=== PATIENT | male | born 1995 | race Caucasian/White ===

== ENCOUNTER 2023-05-07 16:30 | Inpatient (IN) ==
--- NOTE | 2023-05-07 17:43 | DR.GENAD ---
HPI Time Seen Time Seen by Provider: 05/07/23 17:42 COVID-19 Coronavirus risk:travel/contact w/high risk person: No Has patient experienced Coronavirus symptoms: No Nurses notes reviewed Nurses Notes Review: Yes Source History Provided: Patient ROS Review of Systems Constitutional: No Symptoms Reported Eyes: No Symptoms Reported ENTM: No Symptoms Reported Respiratoy: No Symptoms Reported Cardiovascular: No Symptoms Reported Gastrointestinal/Abdominal: No Symptoms Reported Genitourinary: No Symptoms Reported Neurological: No Symptoms Reported Musculoskeletal: No Symptoms Reported Integumentary: No Symptoms Reported Hematologic/Lymphatic: No Symptoms Reported Endocrine: No Symptoms Reported Psychiatric: No Symptoms Reported All Other Systems: Reviewed and Negative PE Vital Signs Vitals: Vital Signs Temperature 97.4 F Pulse Rate 108 Pulse Rate 113 Pulse Rate 114 Pulse Rate 113 Pulse Rate 109 Pulse Rate 105 Pulse Rate 108 Pulse Rate 109 Pulse Rate 109 Pulse Rate 114 Pulse Rate 116 Pulse Rate 118 Pulse Rate 130 Pulse Rate 119 Pulse Rate 122 Respiratory Rate 20 Respiratory Rate 20 Respiratory Rate 16 Respiratory Rate 20 Respiratory Rate 19 Respiratory Rate 13 Respiratory Rate 30 Respiratory Rate 30 Respiratory Rate 26 Respiratory Rate 20 Respiratory Rate 20 Respiratory Rate 25 Respiratory Rate 20 Respiratory Rate 26 Respiratory Rate 20 Respiratory Rate 22 Respiratory Rate 27 Respiratory Rate 20 Blood Pressure 99/56 Blood Pressure 86/48 Blood Pressure 99/57 Blood Pressure 87/53 Blood Pressure 80/50 Blood Pressure 85/54 Blood Pressure 90/50 Blood Pressure 87/54 Blood Pressure 85/52 Blood Pressure 106/55 Blood Pressure 90/55 Blood Pressure 93/57 Blood Pressure 99/57 Blood Pressure 96/59 Blood Pressure 102/59 Blood Pressure 96/64 O2 Sat by Pulse Oximetry 100 O2 Sat by Pulse Oximetry 100 O2 Sat by Pulse Oximetry 100 O2 Sat by Pulse Oximetry 100 O2 Sat by Pulse Oximetry 100 O2 Sat by Pulse Oximetry 100 O2 Sat by Pulse Oximetry 100 O2 Sat by Pulse Oximetry 100 O2 Sat by Pulse Oximetry 100 O2 Sat by Pulse Oximetry 100 O2 Sat by Pulse Oximetry 100 O2 Sat by Pulse Oximetry 100 O2 Sat by Pulse Oximetry 100 O2 Sat by Pulse Oximetry 100 O2 Sat by Pulse Oximetry 100 O2 Sat by Pulse Oximetry 100 General Limitations: No Limitations General Appearance: Alert and In No Apparent Distress Head Head Exam: Normal Inspection Eyes Eye exam: Normal Appearance ENT ENT Exam: Normal Exam Neck Neck Exam: Normal Inspection Chest Chest Inspection: Normal Inspection and Symmetric Chest Wall Rise Respiratory Respiratory Exam: Normal Lung Sounds Bilat; negative Accessory Muscle Use, Chest Wall Tenderness or Respiratory Distress Respiratory Exam: Bilateral: Clear to Auscultation Cardiovascular Cardiovascular Exam: Regular Rate, Normal Rhythm and Normal Heart Sounds; negative Systolic Murmur or Diastolic Murmur Abdominal Exam Abdominal Exam: Normal Inspection, Normal Bowel Sounds and Soft; negative Tenderness Extremities Extremities Exam: Normal Inspection Back Back Exam: Normal Inspection Neurologic Neurological Exam: Alert and Oriented X3 Psychiatric Psychiatric Exam: Normal Affect and Normal Mood Skin Skin Exam: Intact MDM Differential Diagnosis Differential Diagnosis: BACTEREMIA, LEUKOCYTOSIS, ENDOCARDITID, LACTIC ACIDEMIA. COURSE Treatment Treatment: SEE ORDERS DONE WHILE PATIENT WAS IN ER. NS 1V BOLUS TIMES 2. BP IMPROVING. ZOSYN 3.375G IVPD AND VANCOMYCIN 1GM IVPB WHILE IN ER. ADMITTED TO ICU FOR FURTHER MANAGEMENT. Consultation Consultation Comments: DISCUSSED PATIENT WITH DR. PARKER. HE WILL ADMIT PATIENT. Education/Counseling Education/Counseling: Patient and Family Educated On: Treatment and Diagnosis ROR Labs Reviewed Laboratory Results Reviewed?: Yes Result Diagrams: 05/11/23 04:16 05/11/23 04:16 Laboratory: 05/07/23 19:42 Blood Blood Culture - Preliminary 05/07/23 19:35 Blood Blood Culture - Preliminary WBC 27.3 X10^3/uL (3.6-10.0) H 05/07/23 17: RBC 5.20 X10^6/uL (4.7-6.0) 05/07/23 17:01 Hgb 15.5 g/dL (13.5-18.0) 05/07/23 17: Hct 45.8 % (42.0-54.0) 05/07/23 17: MCV 88.1 fL (80.0-100.0) 05/07/23 17: MCH 29.8 pg (27.0-34.0) 05/07/23 17: MCHC 33.9 g/dL (33.0-35.0) 05/07/23 17: RDW 14.1 % (11.6-16.5) 05/07/23 17: Plt Count 274 X10^3/uL (150.0-450.0) 05/07/23 17: Plt Count Comment Adequate (ADEQUATE) 05/07/23 17: MPV 8.2 fL (7.4-11.0) 05/07/23 17:01 Neut % (Auto) 95.8 % (42.0-75.0) H 05/07/23 17:01 Lymph % (Auto) 0.9 % (21.0-51.0) L 05/07/23 17:01 [place] % (Auto) 2.8 % (0.0-13.0) 05/07/23 17:01 Eos % (Auto) 0.1 % (0.9-2.9) L 05/07/23 17:01 Baso % (Auto) 0.4 % (0.2-1.0) 05/07/23 17:01 Neut # (Auto) 26.2 x10^3/uL (2.2-4.8) H 05/07/23 17:01 Lymph # (Auto) 0.3 X10^3/uL (1.3-2.9) L 05/07/23 17:01 [place] # (Auto) 0.8 x10^3/uL (0.3-0.8) 05/07/23 17:01 Eos # (Auto) 0.0 x10^3/uL (0.0-0.2) 05/07/23 17:01 Baso # (Auto) 0.1 X10^3/uL (0.0-0.1) 05/07/23 17:01 Absolute Nucleated RBC 0.0 /100WBC 05/07/23 17:01 Total Counted 100 05/07/23 17: Neutrophils % (Manual) 81 % (39-76) H 05/07/23 17:01 Band Neutrophils % 6 % (0-10) 05/07/23 17:01 Lymphocytes % (Manual) 9 % (13-43) L 05/07/23 17:01 Monocytes % (Manual) 4 % (4-9) 05/07/23 17:01 Plt Morphology Comment Normal (NORMAL) 05/07/23 17: RBC Morphology Normal (NORMAL) 05/07/23 17: Sodium 136 mmol/L (136-145) 05/07/23 17: Corrected Sodium TNP 05/07/23 17: Potassium 4.8 mmol/L (3.5-5.1) 05/07/23 17:01 Chloride 99 mmol/L (98-107) 05/07/23 17:01 Carbon Dioxide 29.2 mmol/L (21-32) 05/07/23 17:01 BUN 15 mg/dL (7-18) 05/07/23 17:01 Creatinine 1.22 mg/dL (0.70-1.30) 05/07/23 17:01 Est GFR (MDRD) Af Amer > 60 (>60) 05/07/23 17:01 Est GFR (MDRD) Non-Af > 60 (>60) 05/07/23 17:01 Glucose 92 mg/dL (65-99) 05/07/23 17:01 Lactic Acid 3.4 mmol/L (0.4-2.0) H 05/07/23 22:31 Calcium 8.4 mg/dL (8.5-10.1) L 05/07/23 17: Corrected Calcium TNP 05/07/23 17: Total Bilirubin 0.80 mg/dL (0.2-1.0) 05/07/23 17:01 AST 204 Units/L (15-37) H 05/07/23 17:01 ALT 276 Units/L (12-78) H 05/07/23 17:01 Alkaline Phosphatase 88 Units/L (46-116) 05/07/23 17:01 Creatine Kinase 81 Units/L (39-308) 05/07/23 17:01 Troponin I High Sens 3.5 ng/L (4.0-60.0) L 05/07/23 17:01 B-Natriuretic Peptide 19.3 pg/mL (0-79) 05/07/23 17:01 Total Protein 6.5 g/dL (6.4-8.2) 05/07/23 17:01 Albumin 3.8 g/dL (3.4-5.0) 05/07/23 17:01 Globulin 2.7 g/dL (2.5-4.5) 05/07/23 17:01 Albumin/Globulin Ratio 1.4 Ratio (1.1-2.1) 05/07/23 17:01 Specimen Type Clean catch urine 05/07/23 19:24 Urine Color Yellow (YELLOW) 05/07/23 19:24 Urine Appearance Clear (CLEAR) 05/07/23 19:24 Urine pH 6.0 (5.0 - 8.0) 05/07/23 19:24 Ur Specific [place] 1.010 (1.000-1.030) 05/07/23 19:24 Urine Protein 1+ (NEGATIVE) 05/07/23 19:24 Urine Glucose (UA) Negative (NEGATIVE) 05/07/23 19:24 Urine Ketones Negative (NEGATIVE) 05/07/23 19:24 Urine Blood Negative (NEGATIVE) 05/07/23 19:24 Urine Nitrite Negative (NEGATIVE) 05/07/23 19:24 Urine Bilirubin Negative (NEGATIVE) 05/07/23 19:24 Urine Urobilinogen Normal (NORMAL) 05/07/23 19:24 Ur Leukocyte Esterase Negative (NEGATIVE) 05/07/23 19:24 Urine RBC None seen /HPF (0-3) 05/07/23 19:24 Urine WBC None seen /HPF (0-5) 05/07/23 19:24 Ur Squamous Epith Cells Rare /HPF (NEGATIVE) 05/07/23 19:24 Urine Bacteria Negative /HPF (NEGATIVE) 05/07/23 19:24 Ur Culture Indicated? No/not indicated 05/07/23 19:24 XRAY XRAY Interpreted by: Radiologist (REPORT NOTED.) and Self Opioid Opioid Risk Tool Total: 0 Total Score Risk Category: Low Risk Copyright: Jaxon VENTURA predicting aberrant behaviors Discharge Plan Diagnosis Discharge Problem: Bacteremia, Endocarditis, Lactic acidemia, Leukocytosis Discharge Plan Patient Disposition: 09 ADMITTED INPATIENT Condition: Stable Discharge Comment: RETURN TO ER IF WORSE.
[2023-05-07 17:44] LABS: BASOPHILS # (AUTO) 0.1 X10^3/uL (0.0-0.1); BASOPHILS % (AUTO) 0.4 % (0.2-1.0); EOSINOPHILS % (AUTO) 0.1 % (0.9-2.9); HEMATOCRIT 45.8 % (42.0-54.0); HEMOGLOBIN 15.5 g/dL (13.5-18.0); LYMPHOCYTES # (AUTO) 0.3 X10^3/uL (1.3-2.9); LYMPHOCYTES % (AUTO) 0.9 % (21.0-51.0); MEAN CORPUSCULAR HEMOGLOBIN 29.8 pg (27.0-34.0); MEAN CORPUSCULAR HGB CONC 33.9 g/dL (33.0-35.0); MEAN CORPUSCULAR VOLUME 88.1 fL (80.0-100.0); MEAN PLATELET VOLUME 8.2 fL (7.4-11.0); MONOCYTES # (AUTO) 0.8 x10^3/uL (0.3-0.8); MONOCYTES % (AUTO) 2.8 % (0.0-13.0); NEUTROPHILS # (AUTO) 26.2 x10^3/uL (2.2-4.8); NEUTROPHILS % (AUTO) 95.8 % (42.0-75.0); PLATELET COUNT 274 X10^3/uL (150.0-450.0); RED CELL DISTRIBUTION WIDTH 14.1 % (11.6-16.5); WHITE BLOOD COUNT 27.3 X10^3/uL (3.6-10.0)
[2023-05-07 17:52] LABS: ALANINE AMINOTRANSFERASE 276 Units/L (12-78); ALBUMIN 3.8 g/dL (3.4-5.0); ALKALINE PHOSPHATASE 88 Units/L (46-116); ASPARTATE AMINO TRANSFERASE 204 Units/L (15-37); BLOOD UREA NITROGEN 15 mg/dL (7-18); CALCIUM 8.4 mg/dL (8.5-10.1); CARBON DIOXIDE 29.2 mmol/L (21-32); CHLORIDE 99 mmol/L (98-107); CREATININE 1.22 mg/dL (0.70-1.30); GLUCOSE 92 mg/dL (65-99); POTASSIUM 4.8 mmol/L (3.5-5.1); SODIUM 136 mmol/L (136-145); TOTAL PROTEIN 6.5 g/dL (6.4-8.2); eGFR NON BLACK RACES > 60 (>60)
--- NOTE | 2023-05-07 17:53 | EKG ---
Test Reason : tachycardia Blood Pressure : */* mmHG Vent. Rate : 121 BPM Atrial Rate : 121 BPM P-R Int : 148 ms QRS Dur : 86 ms QT Int : 286 ms P-R-T Axes : 69 256 58 degrees QTc Int : 406 ms Sinus tachycardia Right superior axis deviation Abnormal ECG Confirmed by Alfred Donovan ([id number]) on 05/08/2023 8:06:35 AM Referred By: Confirmed By: Alfred Donovan
[2023-05-07 18:00] LABS: BAND NEUTROPHILS % 6 % (0-10); PLATELET MORPHOLOGY COMMENT NORMAL (NORMAL)
[2023-05-07] MEDS ORDERED: ZOFRAN INJ 4 MG VIAL IVP ONE (18:03)
[2023-05-07] MEDS ORDERED: TORADOL 30 MG VIAL IVP ONE (18:04)
[2023-05-07] MEDS ORDERED: TORADOL 30 MG VIAL ONE (18:06)
[2023-05-07] MEDS ORDERED: ZOFRAN INJ 4 MG VIAL ONE (18:06)
[2023-05-07] MEDS ORDERED: NS 1,000 ML IV 1,000 ML ONE ×3 (19:47→23:06)
[2023-05-07 19:48] LABS: APPEARANCE,URINE CLEAR (CLEAR); COLOR,URINE YELLOW (YELLOW); GLUCOSE, URINE NEGATIVE (NEGATIVE); KETONES,URINE NEGATIVE (NEGATIVE); PROTEIN,URINE 1+ (NEGATIVE)
[2023-05-07 19:49] LABS: BILIRUBIN,URINE NEGATIVE (NEGATIVE); BLOOD/HEMOGLOBIN,URINE NEGATIVE (NEGATIVE); LEUKOCYTE ESTERASE ,URINE NEGATIVE (NEGATIVE); NITRITES,URINE NEGATIVE (NEGATIVE); UROBILINOGEN,URINE NORMAL (NORMAL)
[2023-05-07 19:50] LABS: BACTERIA,URINE NEGATIVE /HPF (NEGATIVE); RBC,URINE NONE SEEN /HPF (0-3); SQUAMOUS EPITHELIAL CELL,UR RARE /HPF (NEGATIVE)
[2023-05-07] MEDS: NS 1,000 ML IV 1,000 ML IV ONE (19:52)
[2023-05-07] MEDS ORDERED: NS 1,000 ML IV 1,000 ML IV SCH (20:00)
[2023-05-07] MEDS ORDERED: ZOSYN VIAL 3.375 GRAMS IV ONE (21:19)
[2023-05-07] MEDS: ZOSYN VIAL 3.375 GRAMS 3.375 G in NS 100 ML IV 100 ML IV SCH (21:30)
[2023-05-07] MEDS ORDERED: NS 1,000 ML IV 1,000 ML IV ONE (21:36)
[2023-05-07] MEDS ORDERED: VANCOMYCIN IV *PREMIX 1 G/200 ML BAG 1 G/200 ML PIGGYBACK IV ONE ×2 (23:07→23:08)
[2023-05-07 23:38] LABS: ABG BASE EXCESS 0.1 mmol/L (-2.0-2.0); ABG HCO3 24.7 mmol/L (22-26)
[2023-05-08 00:45] VITALS: BMI 19.6
[2023-05-08] MEDS: NS 1,000 ML IV 1,000 ML IV SCH ×4 (01:28→21:07)
[2023-05-08] MEDS: SOLU-Cortef INJ IVP SCH ×4 (01:28→17:46)
--- NOTE | 2023-05-08 02:11 | RAD ---
HISTORYTACHYCARDIASTUDYCHEST, 1 VIEWCOMPARISONNone.TECHNIQUEA single frontal view of the chest was obtained.FINDINGSThere are multiple EKG leads and wires seen overlying the patient. The heart is normal in size. There is no focal infiltrate. There is no effusion. There is no pneumothorax. The osseous structures are intact.IMPRESSIONNo focal infiltrate or effusion.Electronically signed by: Melanie Neil (May 08, 2023 02:10:28)
[2023-05-08 05:20] LABS: INR 1.18 (0.8-1.3)
[2023-05-08] MEDS: ZOSYN VIAL 3.375 GRAMS 3.375 G in NS 100 ML IV 100 ML IV SCH ×3 (05:21→21:07)
[2023-05-08 05:30] LABS: BASOPHILS % (AUTO) 0.1 % (0.2-1.0); EOSINOPHILS # (AUTO) 0.1 x10^3/uL (0.0-0.2); EOSINOPHILS % (AUTO) 0.3 % (0.9-2.9); HEMATOCRIT 37.3 % (42.0-54.0); LYMPHOCYTES # (AUTO) 0.9 X10^3/uL (1.3-2.9); LYMPHOCYTES % (AUTO) 2.7 % (21.0-51.0); MEAN CORPUSCULAR HEMOGLOBIN 29.8 pg (27.0-34.0); MEAN CORPUSCULAR HGB CONC 33.8 g/dL (33.0-35.0); MEAN PLATELET VOLUME 8.3 fL (7.4-11.0); MONOCYTES # (AUTO) 1.7 x10^3/uL (0.3-0.8); MONOCYTES % (AUTO) 4.9 % (0.0-13.0); NEUTROPHILS # (AUTO) 31.8 x10^3/uL (2.2-4.8); PLATELET COUNT 237 X10^3/uL (150.0-450.0); RED BLOOD COUNT 4.23 X10^6/uL (4.7-6.0); RED CELL DISTRIBUTION WIDTH 14.6 % (11.6-16.5)
[2023-05-08 05:33] LABS: LACTIC ACID 1.6 mmol/L (0.4-2.0)
[2023-05-08 05:34] LABS: ALANINE AMINOTRANSFERASE 157 Units/L (12-78); ALBUMIN 2.8 g/dL (3.4-5.0); ALKALINE PHOSPHATASE 70 Units/L (46-116); ASPARTATE AMINO TRANSFERASE 73 Units/L (15-37); BLOOD UREA NITROGEN 17 mg/dL (7-18); CALCIUM 7.5 mg/dL (8.5-10.1); CARBON DIOXIDE 28.7 mmol/L (21-32); CHLORIDE 106 mmol/L (98-107); COR CA(FOR HYPOALB) 8.5 mg/dL (8.5-10.1); COR NA(FOR HYPERGLY) 142 mmol/L (136-145); CREATININE 1.22 mg/dL (0.70-1.30); GLUCOSE 121 mg/dL (65-99); MAGNESIUM 1.8 mg/dL (2.0-2.9); PHOSPHORUS 2.6 mg/dL (2.6-4.7); POTASSIUM 4.9 mmol/L (3.5-5.1); SODIUM 141 mmol/L (136-145); TOTAL PROTEIN 5.3 g/dL (6.4-8.2); eGFR NON BLACK RACES > 60 (>60)
[2023-05-08] MEDS ORDERED: ZOSYN VIAL 4.5 GRAMS 4.5 G in NS 100 ML IV + SPIKE MINIBAG* 100 ML IV SCH (06:00)
[2023-05-08 06:03] LABS: BAND NEUTROPHILS % 8 % (0-10); HEMOGLOBIN 12.6 g/dL (13.5-18.0); WHITE BLOOD COUNT 34.6 X10^3/uL (3.6-10.0)
[2023-05-08 06:04] LABS: PLATELET MORPHOLOGY COMMENT NORMAL (NORMAL)
[2023-05-08 06:15] LABS: AMYLASE 38 Units/L (25-115); LIPASE 107 Units/L (73-393)
[2023-05-08] MEDS ORDERED: CONSULT PHARMACY - POTASSIUM & MAGNESIUM XX SCH (07:00)
[2023-05-08] MEDS ORDERED: VANCOMYCIN IV *PREMIX 1 G/200 ML BAG 1 G/200 ML PIGGYBACK IV SCH (09:00)
[2023-05-08] MEDS ORDERED: THIAMINE HCL INJ IM SCH (09:00)
[2023-05-08 09:34] LABS: CREATININE 1.11 mg/dL (0.70-1.30); VANCOMYCIN,TROUGH 5.9 ug/mL (15-20)
--- NOTE | 2023-05-08 09:38 | CT ---
HISTORYSEVERE HEADACHE.brSTUDYBRAIN W/O CONCOMPARISONNone.TECHNIQUEMultiple axial images of the head were performed from the skullbase to the vertex using standard departmental protocol. Sagittal and coronal reformatted images were performed. Dose reduction techniques including Automated Exposure Control (AEC) and adjustment of mA and kV were utilized.FINDINGSThe lateral ventricles and basilar cisterns are patent.No parenchymal mass or hematoma. Torres-white differentiation appears acutely preserved.No extra-axial collection.The globes are intact.No air fluid levels in the paranasal sinuses. No paranasal sinus wall thickening or sclerosis. Mastoid air cells are clear.The calvarium is intact.IMPRESSIONNo acute intracranial abnormality.Electronically signed by: Yovany Kunz (May 08, 2023 09:37:42)
[2023-05-08] MEDS: VSL#3 PO SCH (09:58)
[2023-05-08] MEDS: MOTRIN TAB 800 MG PO PRN (09:59)
[2023-05-08] MEDS: MAG-OX TAB PO SCH ×2 (10:00→11:30)
[2023-05-08] MEDS: TYLENOL 500 MG TAB EXTRA STRENGTH PO PRN (10:00)
[2023-05-08] MEDS: VANCOMYCIN IV *PREMIX 1 G/200 ML BAG 1 G/200 ML PIGGYBACK IV SCH ×2 (13:27→21:07)
--- NOTE | 2023-05-08 17:17 | US ---
LIVERHISTORY: Reason For StudyComparison: NoneTechnique: Multiple appiah scale and color flow Doppler images of the abdomen were obtained.Findings:Overall study is limited by overlying bowel gas. The liver is normal in echotexture and size. No focal mass. No intrahepatic bile duct dilatation. No gallstones.No pericholecystic fluid or gallbladder wall thickening. The technologist did not report a positive sonographic Jaramillo's sign. The common bile duct measures 3 mm.IMPRESSION:1.Unremarkable right upper quadrant ultrasound.Electronically signed by: IKER GONZALEZ (May 08, 2023 17:15:34)
[2023-05-09] MEDS: SOLU-Cortef INJ IVP SCH ×2 (00:56→05:22)
[2023-05-09] MEDS: TYLENOL 500 MG TAB EXTRA STRENGTH PO PRN (01:35)
[2023-05-09] MEDS ORDERED: ULTRAM ONE (04:19)
[2023-05-09] MEDS: ULTRAM PO PRN ×2 (04:20→21:15)
[2023-05-09] MEDS: MOTRIN TAB 800 MG PO PRN ×2 (04:20→15:28)
[2023-05-09] MEDS: ZOSYN VIAL 3.375 GRAMS 3.375 G in NS 100 ML IV 100 ML IV SCH ×3 (05:06→21:15)
[2023-05-09] MEDS: NS 1,000 ML IV 1,000 ML IV SCH ×4 (05:07→23:21)
[2023-05-09 05:19] LABS: VANCOMYCIN,TROUGH 11.1 ug/mL (15-20)
[2023-05-09 05:20] LABS: ALANINE AMINOTRANSFERASE 105 Units/L (12-78); ALBUMIN 2.5 g/dL (3.4-5.0); ALKALINE PHOSPHATASE 69 Units/L (46-116); ASPARTATE AMINO TRANSFERASE 35 Units/L (15-37); BASOPHILS # (AUTO) 0.1 X10^3/uL (0.0-0.1); BASOPHILS % (AUTO) 0.2 % (0.2-1.0); BLOOD UREA NITROGEN 13 mg/dL (7-18); CALCIUM 7.4 mg/dL (8.5-10.1); CARBON DIOXIDE 23.6 mmol/L (21-32); CHLORIDE 107 mmol/L (98-107); COR CA(FOR HYPOALB) 8.6 mg/dL (8.5-10.1); COR NA(FOR HYPERGLY) 144 mmol/L (136-145); CREATININE 1.01 mg/dL (0.70-1.30); EOSINOPHILS # (AUTO) 0.1 x10^3/uL (0.0-0.2); EOSINOPHILS % (AUTO) 0.2 % (0.9-2.9); GLUCOSE 154 mg/dL (65-99); HEMATOCRIT 35.3 % (42.0-54.0); LYMPHOCYTES # (AUTO) 1.6 X10^3/uL (1.3-2.9); LYMPHOCYTES % (AUTO) 4.7 % (21.0-51.0); MEAN CORPUSCULAR HEMOGLOBIN 30.2 pg (27.0-34.0); MEAN CORPUSCULAR HGB CONC 34.1 g/dL (33.0-35.0); MEAN CORPUSCULAR VOLUME 88.5 fL (80.0-100.0); MONOCYTES # (AUTO) 2.5 x10^3/uL (0.3-0.8); MONOCYTES % (AUTO) 7.1 % (0.0-13.0); NEUTROPHILS # (AUTO) 30.6 x10^3/uL (2.2-4.8); NEUTROPHILS % (AUTO) 87.8 % (42.0-75.0); PLATELET COUNT 239 X10^3/uL (150.0-450.0); POTASSIUM 3.8 mmol/L (3.5-5.1); RED BLOOD COUNT 3.98 X10^6/uL (4.7-6.0); RED CELL DISTRIBUTION WIDTH 14.4 % (11.6-16.5); SODIUM 143 mmol/L (136-145); TOTAL PROTEIN 5.3 g/dL (6.4-8.2); eGFR NON BLACK RACES > 60 (>60)
[2023-05-09] MEDS: VANCOMYCIN IV *PREMIX 1 G/200 ML BAG 1 G/200 ML PIGGYBACK IV SCH ×3 (05:22→21:14)
[2023-05-09] MEDS ORDERED: PHARMACY COMMENT IV NR (05:30)
[2023-05-09 05:49] LABS: WHITE BLOOD COUNT 34.9 X10^3/uL (3.6-10.0)
[2023-05-09] MEDS ORDERED: CONSULT PHARMACY - POTASSIUM & MAGNESIUM XX SCH (07:00)
[2023-05-09] MEDS ORDERED: K-DUR TAB 20 MEQ PO SCH (08:00)
[2023-05-09] MEDS ORDERED: NORCO 5/325 MG TAB PO PRN (08:32)
[2023-05-09] MEDS ORDERED: PHARMACY COMMENT IV SCH (08:45)
[2023-05-09] MEDS: VSL#3 PO SCH (08:57)
[2023-05-09] MEDS: NORCO 5/325 MG TAB PO PRN ×2 (08:58→16:37)
[2023-05-09] MEDS: MAG-OX TAB PO SCH ×2 (08:59→10:32)
[2023-05-10] MEDS: NORCO 5/325 MG TAB PO PRN (02:33)
[2023-05-10 05:17] LABS: BASOPHILS # (AUTO) 0.1 X10^3/uL (0.0-0.1); BASOPHILS % (AUTO) 0.5 % (0.2-1.0); EOSINOPHILS # (AUTO) 0.4 x10^3/uL (0.0-0.2); EOSINOPHILS % (AUTO) 1.8 % (0.9-2.9); HEMATOCRIT 38.2 % (42.0-54.0); HEMOGLOBIN 12.6 g/dL (13.5-18.0); LYMPHOCYTES # (AUTO) 4.3 X10^3/uL (1.3-2.9); LYMPHOCYTES % (AUTO) 18.6 % (21.0-51.0); MEAN CORPUSCULAR HEMOGLOBIN 29.2 pg (27.0-34.0); MEAN CORPUSCULAR HGB CONC 32.9 g/dL (33.0-35.0); MEAN CORPUSCULAR VOLUME 88.7 fL (80.0-100.0); MEAN PLATELET VOLUME 8.9 fL (7.4-11.0); MONOCYTES # (AUTO) 1.4 x10^3/uL (0.3-0.8); NEUTROPHILS # (AUTO) 16.9 x10^3/uL (2.2-4.8); NEUTROPHILS % (AUTO) 73.1 % (42.0-75.0); PLATELET COUNT 280 X10^3/uL (150.0-450.0); RED BLOOD COUNT 4.31 X10^6/uL (4.7-6.0); RED CELL DISTRIBUTION WIDTH 14.9 % (11.6-16.5)
[2023-05-10 05:25] LABS: VANCOMYCIN,TROUGH 15.7 ug/mL (15-20)
[2023-05-10 05:28] LABS: ALANINE AMINOTRANSFERASE 87 Units/L (12-78); ALBUMIN 2.5 g/dL (3.4-5.0); ALKALINE PHOSPHATASE 73 Units/L (46-116); ASPARTATE AMINO TRANSFERASE 27 Units/L (15-37); BLOOD UREA NITROGEN 13 mg/dL (7-18); CALCIUM 7.3 mg/dL (8.5-10.1); CARBON DIOXIDE 24.1 mmol/L (21-32); CHLORIDE 111 mmol/L (98-107); COR CA(FOR HYPOALB) 8.5 mg/dL (8.5-10.1); CREATININE 0.98 mg/dL (0.70-1.30); GLUCOSE 93 mg/dL (65-99); POTASSIUM 4.2 mmol/L (3.5-5.1); SODIUM 144 mmol/L (136-145); eGFR NON BLACK RACES > 60 (>60)
[2023-05-10 05:34] LABS: WHITE BLOOD COUNT 23.1 X10^3/uL (3.6-10.0)
[2023-05-10 05:35] LABS: PLATELET MORPHOLOGY COMMENT NORMAL (NORMAL)
[2023-05-10] MEDS: VANCOMYCIN IV *PREMIX 1 G/200 ML BAG 1 G/200 ML PIGGYBACK IV SCH ×3 (05:53→21:35)
[2023-05-10] MEDS: ZOSYN VIAL 3.375 GRAMS 3.375 G in NS 100 ML IV 100 ML IV SCH ×3 (05:53→21:35)
[2023-05-10] MEDS: NS 1,000 ML IV 1,000 ML IV SCH ×5 (07:50→21:39)
[2023-05-10] MEDS: VSL#3 PO SCH (08:58)
[2023-05-10] MEDS: METHADONE HCL PO SCH (09:46)
[2023-05-11] MEDS: ZOSYN VIAL 3.375 GRAMS 3.375 G in NS 100 ML IV 100 ML IV SCH ×3 (05:21→21:15)
[2023-05-11] MEDS: VANCOMYCIN IV *PREMIX 1 G/200 ML BAG 1 G/200 ML PIGGYBACK IV SCH ×3 (05:21→21:15)
[2023-05-11 05:23] LABS: BASOPHILS # (AUTO) 0.2 X10^3/uL (0.0-0.1); BASOPHILS % (AUTO) 1.1 % (0.2-1.0); EOSINOPHILS # (AUTO) 0.6 x10^3/uL (0.0-0.2); EOSINOPHILS % (AUTO) 4.1 % (0.9-2.9); HEMATOCRIT 39.6 % (42.0-54.0); HEMOGLOBIN 13.6 g/dL (13.5-18.0); LYMPHOCYTES % (AUTO) 19.8 % (21.0-51.0); MEAN CORPUSCULAR HEMOGLOBIN 29.8 pg (27.0-34.0); MEAN CORPUSCULAR HGB CONC 34.3 g/dL (33.0-35.0); MEAN CORPUSCULAR VOLUME 87.1 fL (80.0-100.0); MEAN PLATELET VOLUME 8.4 fL (7.4-11.0); MONOCYTES % (AUTO) 6.5 % (0.0-13.0); NEUTROPHILS # (AUTO) 10.6 x10^3/uL (2.2-4.8); NEUTROPHILS % (AUTO) 68.5 % (42.0-75.0); PLATELET COUNT 317 X10^3/uL (150.0-450.0); RED BLOOD COUNT 4.55 X10^6/uL (4.7-6.0); RED CELL DISTRIBUTION WIDTH 14.5 % (11.6-16.5); WHITE BLOOD COUNT 15.4 X10^3/uL (3.6-10.0)
[2023-05-11 05:41] LABS: ALANINE AMINOTRANSFERASE 68 Units/L (12-78); ALBUMIN 2.6 g/dL (3.4-5.0); ALKALINE PHOSPHATASE 78 Units/L (46-116); ASPARTATE AMINO TRANSFERASE 16 Units/L (15-37); BLOOD UREA NITROGEN 10 mg/dL (7-18); CALCIUM 7.8 mg/dL (8.5-10.1); CARBON DIOXIDE 28.3 mmol/L (21-32); CHLORIDE 108 mmol/L (98-107); COR CA(FOR HYPOALB) 8.9 mg/dL (8.5-10.1); CREATININE 0.97 mg/dL (0.70-1.30); GLUCOSE 94 mg/dL (65-99); POTASSIUM 3.7 mmol/L (3.5-5.1); SODIUM 144 mmol/L (136-145); TOTAL PROTEIN 5.3 g/dL (6.4-8.2); eGFR NON BLACK RACES > 60 (>60)
[2023-05-11] MEDS ORDERED: CONSULT PHARMACY - POTASSIUM & MAGNESIUM XX SCH (06:00)
[2023-05-11 06:28] LABS: PLATELET MORPHOLOGY COMMENT NORMAL (NORMAL)
[2023-05-11] MEDS ORDERED: K-DUR TAB 20 MEQ PO SCH (07:00)
[2023-05-11] MEDS: NS 1,000 ML IV 1,000 ML IV SCH ×3 (07:06→18:08)
[2023-05-11] MEDS: VSL#3 PO SCH (08:17)
[2023-05-11] MEDS: METHADONE HCL PO SCH (08:18)
[2023-05-11] MEDS: MAG-OX TAB PO SCH ×4 (08:18→11:48)
[2023-05-11 12:37] LABS: HEPATITIS B SURFACE ANTIGEN Negative (Negative)
[2023-05-11 14:54] LABS: CREATININE 1.03 mg/dL (0.70-1.30); VANCOMYCIN,TROUGH 14.9 ug/mL (15-20)
[2023-05-12] MEDS: NS 1,000 ML IV 1,000 ML IV SCH ×3 (02:08→17:53)
[2023-05-12 05:12] LABS: BASOPHILS # (AUTO) 0.1 X10^3/uL (0.0-0.1); EOSINOPHILS # (AUTO) 0.6 x10^3/uL (0.0-0.2); EOSINOPHILS % (AUTO) 4.4 % (0.9-2.9); HEMATOCRIT 42.1 % (42.0-54.0); HEMOGLOBIN 14.5 g/dL (13.5-18.0); LYMPHOCYTES # (AUTO) 2.3 X10^3/uL (1.3-2.9); LYMPHOCYTES % (AUTO) 18.1 % (21.0-51.0); MEAN CORPUSCULAR HEMOGLOBIN 29.9 pg (27.0-34.0); MEAN CORPUSCULAR HGB CONC 34.3 g/dL (33.0-35.0); MEAN PLATELET VOLUME 8.1 fL (7.4-11.0); MONOCYTES # (AUTO) 0.8 x10^3/uL (0.3-0.8); NEUTROPHILS # (AUTO) 9.1 x10^3/uL (2.2-4.8); NEUTROPHILS % (AUTO) 70.5 % (42.0-75.0); PLATELET COUNT 356 X10^3/uL (150.0-450.0); RED BLOOD COUNT 4.84 X10^6/uL (4.7-6.0); RED CELL DISTRIBUTION WIDTH 14.3 % (11.6-16.5); WHITE BLOOD COUNT 12.8 X10^3/uL (3.6-10.0)
[2023-05-12 05:27] LABS: ALANINE AMINOTRANSFERASE 71 Units/L (12-78); ALBUMIN 3.1 g/dL (3.4-5.0); ALKALINE PHOSPHATASE 108 Units/L (46-116); ASPARTATE AMINO TRANSFERASE 29 Units/L (15-37); BLOOD UREA NITROGEN 10 mg/dL (7-18); CALCIUM 8.2 mg/dL (8.5-10.1); CARBON DIOXIDE 34.5 mmol/L (21-32); CHLORIDE 103 mmol/L (98-107); COR CA(FOR HYPOALB) 8.9 mg/dL (8.5-10.1); GLUCOSE 110 mg/dL (65-99); MAGNESIUM 2.1 mg/dL (2.0-2.9); SODIUM 142 mmol/L (136-145); TOTAL PROTEIN 6.1 g/dL (6.4-8.2); eGFR NON BLACK RACES > 60 (>60)
[2023-05-12] MEDS ORDERED: VANCOMYCIN IV *PREMIX 1 G/200 ML BAG 1 G/200 ML PIGGYBACK IV ONE (05:30)
[2023-05-12] MEDS: VANCOMYCIN IV *PREMIX 1 G/200 ML BAG 1 G/200 ML PIGGYBACK IV SCH ×3 (05:41→22:21)
[2023-05-12] MEDS: ZOSYN VIAL 3.375 GRAMS 3.375 G in NS 100 ML IV 100 ML IV SCH ×3 (05:46→21:06)
[2023-05-12 06:11] LABS: BAND NEUTROPHILS % 2 % (0-10); METAMYELOCYTES % 1; PLATELET MORPHOLOGY COMMENT NORMAL (NORMAL)
[2023-05-12] MEDS: VSL#3 PO SCH (08:46)
[2023-05-12] MEDS: METHADONE HCL PO SCH (08:46)
[2023-05-12 21:33] LABS: VANCOMYCIN,TROUGH 13.5 ug/mL (15-20)
[2023-05-12] MEDS ORDERED: PHARMACY CONSULT - VANCOMYCIN XX SCH (23:00)
[2023-05-13] MEDS: NS 1,000 ML IV 1,000 ML IV SCH ×4 (01:25→21:09)
[2023-05-13] MEDS: ULTRAM PO PRN (04:36)
[2023-05-13] MEDS: VANCOMYCIN IV *PREMIX 1 G/200 ML BAG 1 G/200 ML PIGGYBACK IV SCH ×3 (05:19→21:08)
[2023-05-13] MEDS: ZOSYN VIAL 3.375 GRAMS 3.375 G in NS 100 ML IV 100 ML IV SCH ×3 (05:19→21:08)
[2023-05-13 06:37] LABS: BASOPHILS # (AUTO) 0.1 X10^3/uL (0.0-0.1); BASOPHILS % (AUTO) 0.6 % (0.2-1.0); EOSINOPHILS # (AUTO) 0.5 x10^3/uL (0.0-0.2); EOSINOPHILS % (AUTO) 4.1 % (0.9-2.9); HEMATOCRIT 41.7 % (42.0-54.0); HEMOGLOBIN 13.9 g/dL (13.5-18.0); LYMPHOCYTES # (AUTO) 1.8 X10^3/uL (1.3-2.9); LYMPHOCYTES % (AUTO) 13.5 % (21.0-51.0); MEAN CORPUSCULAR HEMOGLOBIN 29.4 pg (27.0-34.0); MEAN CORPUSCULAR HGB CONC 33.4 g/dL (33.0-35.0); MEAN CORPUSCULAR VOLUME 88.2 fL (80.0-100.0); MEAN PLATELET VOLUME 7.8 fL (7.4-11.0); MONOCYTES % (AUTO) 7.9 % (0.0-13.0); NEUTROPHILS # (AUTO) 9.8 x10^3/uL (2.2-4.8); NEUTROPHILS % (AUTO) 73.9 % (42.0-75.0); PLATELET COUNT 327 X10^3/uL (150.0-450.0); RED BLOOD COUNT 4.73 X10^6/uL (4.7-6.0); RED CELL DISTRIBUTION WIDTH 14.8 % (11.6-16.5); WHITE BLOOD COUNT 13.2 X10^3/uL (3.6-10.0)
[2023-05-13 06:52] LABS: ALANINE AMINOTRANSFERASE 54 Units/L (12-78); ALBUMIN 3.2 g/dL (3.4-5.0); ALKALINE PHOSPHATASE 92 Units/L (46-116); ASPARTATE AMINO TRANSFERASE 22 Units/L (15-37); BLOOD UREA NITROGEN 11 mg/dL (7-18); CALCIUM 8.3 mg/dL (8.5-10.1); CARBON DIOXIDE 30.7 mmol/L (21-32); CHLORIDE 102 mmol/L (98-107); COR CA(FOR HYPOALB) 8.9 mg/dL (8.5-10.1); CREATININE 0.82 mg/dL (0.70-1.30); GLUCOSE 103 mg/dL (65-99); POTASSIUM 3.6 mmol/L (3.5-5.1); SODIUM 139 mmol/L (136-145); TOTAL PROTEIN 6.2 g/dL (6.4-8.2); eGFR NON BLACK RACES > 60 (>60)
[2023-05-13] MEDS ORDERED: CONSULT PHARMACY - POTASSIUM & MAGNESIUM XX SCH (07:00)
[2023-05-13] MEDS ORDERED: K-DUR TAB 20 MEQ PO SCH (08:00)
[2023-05-13] MEDS: METHADONE HCL PO SCH (09:06)
[2023-05-13] MEDS: VSL#3 PO SCH (09:07)
[2023-05-13] MEDS ORDERED: OMNIPAQUE 350 mg/mL 100 mL BTL 100 ML ONE (16:45)
--- NOTE | 2023-05-13 17:52 | CT ---
HISTORYR/O PE, ELEVATED D-DIMERSTUDYCTA CHESTCOMPARISONNoneTECHNIQUEMultiple axial images of the chest were obtained from the thoracic inlet to the upper abdomen after the administration of IV contrast. 3D reconstructions utilizing axial MIPS imaging was performed and reviewed. Dose reduction techniques including Automated Exposure Control (AEC) and adjustment of mA and kV were utilized.FINDINGSThe mediastinum does not demonstrate significant pathological lymphadenopathy. There is no pericardial effusion observed. The thoracic aorta is normal in its contour without evidence for aneurysmal dilatation. The central pulmonary arterial system does not demonstrate central filling defects to suggest pulmonary emboli.Evaluation of the lung parenchyma demonstrates small right-sided effusion.. No pulmonary nodule or mass can be identified. The bony thorax is unremarkable in its appearance . The visualized portions of the upper abdomen are grossly unremarkable .IMPRESSIONSmall right-sided pleural effusion with no evidence for any focal consolidation or pulmonary embolus..Electronically signed by: FABIO HOLT (May 13, 2023 17:50:37)
--- NOTE | 2023-05-13 18:37 | RAD ---
HISTORYLUMAR PAIN Relevant Clinical InformationSTUDYLUMBAR SPINE, AP/LATCOMPARISONNoneFINDINGSNormal alignment of the lumbar spine is maintained. The posterior elements appear unremarkable in their appearance. The disk space height is maintained without significant endplate sclerosis. No evidence for acute fracture can be identified.IMPRESSIONNegative examElectronically signed by: FABIO HOLT (May 13, 2023 18:36:10)
[2023-05-14] MEDS: NS 1,000 ML IV 1,000 ML IV SCH ×2 (03:20→08:17)
[2023-05-14 04:09] VITALS: O2SAT 97
[2023-05-14] MEDS: ZOSYN VIAL 3.375 GRAMS 3.375 G in NS 100 ML IV 100 ML IV SCH (05:18)
[2023-05-14 06:10] LABS: BASOPHILS # (AUTO) 0.1 X10^3/uL (0.0-0.1); BASOPHILS % (AUTO) 1.2 % (0.2-1.0); EOSINOPHILS # (AUTO) 0.6 x10^3/uL (0.0-0.2); EOSINOPHILS % (AUTO) 7.3 % (0.9-2.9); HEMATOCRIT 43.4 % (42.0-54.0); HEMOGLOBIN 14.5 g/dL (13.5-18.0); LYMPHOCYTES % (AUTO) 24.9 % (21.0-51.0); MEAN CORPUSCULAR HEMOGLOBIN 29.4 pg (27.0-34.0); MEAN CORPUSCULAR HGB CONC 33.3 g/dL (33.0-35.0); MEAN CORPUSCULAR VOLUME 88.3 fL (80.0-100.0); MEAN PLATELET VOLUME 7.6 fL (7.4-11.0); MONOCYTES # (AUTO) 0.9 x10^3/uL (0.3-0.8); MONOCYTES % (AUTO) 10.9 % (0.0-13.0); NEUTROPHILS # (AUTO) 4.5 x10^3/uL (2.2-4.8); NEUTROPHILS % (AUTO) 55.7 % (42.0-75.0); PLATELET COUNT 350 X10^3/uL (150.0-450.0); RED BLOOD COUNT 4.91 X10^6/uL (4.7-6.0); RED CELL DISTRIBUTION WIDTH 14.5 % (11.6-16.5)
[2023-05-14 06:27] LABS: ALANINE AMINOTRANSFERASE 54 Units/L (12-78); ALBUMIN 3.4 g/dL (3.4-5.0); ALKALINE PHOSPHATASE 83 Units/L (46-116); ASPARTATE AMINO TRANSFERASE 27 Units/L (15-37); BLOOD UREA NITROGEN 13 mg/dL (7-18); CALCIUM 8.5 mg/dL (8.5-10.1); CARBON DIOXIDE 31.2 mmol/L (21-32); CHLORIDE 103 mmol/L (98-107); GLUCOSE 101 mg/dL (65-99); POTASSIUM 4.5 mmol/L (3.5-5.1); SODIUM 141 mmol/L (136-145); TOTAL PROTEIN 6.6 g/dL (6.4-8.2); eGFR NON BLACK RACES > 60 (>60)
[2023-05-14 07:14] LABS: CREATININE 0.85 mg/dL (0.70-1.30); VANCOMYCIN,TROUGH 19.1 ug/mL (15-20)
[2023-05-14 07:54] VITALS: BP 88/52; PULSE 73; TEMP 97.7
[2023-05-14] MEDS: VANCOMYCIN IV *PREMIX 1 G/200 ML BAG 1 G/200 ML PIGGYBACK IV SCH (07:55)
[2023-05-14] MEDS: VSL#3 PO SCH (09:50)
[2023-05-14] MEDS: METHADONE HCL PO SCH ×2 (09:50→11:02)
[2023-05-14 11:03] VITALS: RESP 18
[2023-05-15] MEDS ORDERED: PHARMACY COMMENT IV ONE (05:30)
== END 2023-05-14 11:15 | disposition home or self-care (01) | DRG 290 ==
LOC: ER 16:30 → ICU 22:58 → MED/SURG 05-12 17:51
PROVIDERS: ADMIT Obstetrics & Gynecology Obstetrics; ATTEND Obstetrics & Gynecology Obstetrics
DX: R00.0 Tachycardia, unspecified; R53.1 Weakness; I33.0 Acute and subacute infective endocarditis; R06.02 Shortness of breath; R51.9 Headache, unspecified; Z59.86 Financial insecurity; M54.89 Other dorsalgia; F19.10 Other psychoactive substance abuse, uncomplicated